=== PATIENT | female | born 1950 | race Caucasian/White ===

== ENCOUNTER → 2017-08-18 | Outpatient (CLI) | payer OTHER ==
--- NOTE | 2017-08-18 09:58 | MG ---
HISTORY: SCREENING Comparison: 03/18/2016 FINDINGS: Bilateral CC and MLO projections of the right and left breast were obtained. Dense fibroglandular ti ssue is seen to be present. No significant architectural distortion, mass or clustered microcalcific ations can be observed to suggest malignancy. No skin thickening or nipple retraction is appreciated . No pathological lymphadenopathy can be identified. Benign-appearing calcifications scattered thro ughout the right and left breasts are observed. IMPRESSION: NO RADIOGRAPHIC EVIDENCE OF MALIGNANCY. ACR CATEGORY: 2 - benign findings. FOLLOW-UP EXAM 1 YEAR. Diagnostic CAD was utilized and reviewed. * 0 (ZERO) - ASSESSMENT INCOMPLETE; ADDITIONAL IMAGING IS NEEDED. * 1/1 (ONE) - NEGATIVE. * 2/II (TWO) - BENIGN FINDINGS. * 3/III (THREE) - PROBABLY BENIGN FINDING; SHORT INTERVAL FOLLOW-UP SUGGESTED. * 4/IV (FOUR) - SUSPICIOUS ABNORMALITY; BIOPSY SHOULD BE CONSIDERED. * 5/V - HIGHLY SUSPICIOUS OF MALIGNANCY; BIOPSY SHOULD BE PERFORMED. A NEGATIVE X-RAY REPORT SHOULD NOT DELAY BIOPSY IF A DOMINANT OR CLINICALLY SUSPICIOUS MASS IS PRESENT; 4 TO 8 PERCENT OF CANCERS ARE NOT IDENTIFIED BY X-RAY. A NEGA TIVE REPORT MAY REINFORCE THE CLINICAL IMPRESSION. ADENOSIS AND DENSE BREASTS MAY OBSCURE AN UNDERLY ING NEOPLASM. Reported By:
== END ==
LOC: RAD 08:26
PROVIDERS: ATTEND Internal Medicine
DX: Z12.31 Encounter for screening mammogram for malignant neoplasm of breast (principal)
CPT/HCPCS: 77067

== ENCOUNTER 2021-05-09 11:46 | Inpatient (IN) ==
[2021-05-09 11:58] VITALS: BMI 20.8
--- NOTE | 2021-05-09 12:16 | DR.CP ---
HPI Time Seen Time Seen by Provider: 05/09/21 12:14 PCP Primary Care Physician: Kervin HPI Comment HPI Comment: 70 y/o with cad s/p stent and no hx afib/flutter with one week of intermittent cp, dizziness and palpitations; worsened this am and she took an extra dose of metoprolol; no cough, fever, chills, n/v/d or synocope; no cigarettes, asthma or copd; she has not been vaccinated against covid and denies exposure. She went to see pcp on Tuesday and was placed on cefdinir and prednisone after bloodwork and cxr done; she's not sure why she's taking them Complaint Chief Complaint:: Pt c/o chest pain and dizziness x 1 week. Self Treatment fo Chief Complaint: Aspirin 81mg COVID-19 Coronavirus risk:travel/contact w/high risk person: No Has patient experienced Coronavirus symptoms: No Source History Provided: Patient Mode of Arrival Mode of Arrival: Ambulatory Timing Onset of Chief Complaint: 05/02/21 Associated Signs and Symptoms Associated Signs and Symptoms: Other PMH PMH Past Medical History: Yes Past Medical History: Coronary Artery Disease and Hypertension Past Surgical History: Yes Surgical History: Hysterectomy Past Surgical History Comment: heart cath with stents Family History History of Family Medical Conditions: Yes Family Medical History: [place] Social History Does patient currently use any type of tobacco product: No Have you used tobacco products in the last 12 months: No Type of Tobacco Use: None Does any household member use tobacco: No Alcohol Use: None Do you use any recreational Drugs:: No Lives With: Family Lives Where: Home Travel Risk Coronavirus risk:travel/contact w/high risk person: No Has patient experienced Coronavirus symptoms: No Infectious screening In the last 2 months have you had wt loss of >10#?: NO Have you had fever, night sweats or hemotysis?: No Have you traveled outside the country in the last 6 months?: No Isolation: Standard ROS Review of Systems Eyes: No Symptoms Reported ENTM: No Symptoms Reported Respiratoy: No Symptoms Reported Gastrointestinal/Abdominal: No Symptoms Reported Genitourinary: No Symptoms Reported Musculoskeletal: No Symptoms Reported Integumentary: No Symptoms Reported Hematologic/Lymphatic: No Symptoms Reported Endocrine: No Symptoms Reported Psychiatric: No Symptoms Reported PE Vitals Vitals: Temperature 98.0 F Pulse Rate 136 Respiratory Rate 20 Blood Pressure 78/45 O2 Sat by Pulse Oximetry 98 General Limitations: No Limitations General Appearance: Other (thin, alert, resting quietly and currently without pain or palpitations) Head Head Exam: Normal Inspection Eyes Eye exam: Normal Appearance ENT ENT Exam: Normal Exam Chest Chest Inspection: Normal Inspection Respiratory Respiratory Exam: Normal Lung Sounds Bilat Respiratory Exam: Bilateral: Clear to Auscultation Cardiovascular Cardiovascular Exam: Tachycardia and Irregular Rhythm Abdominal Exam Abdominal Exam: Normal Inspection, Normal Bowel Sounds and Soft Extremities Extremities Exam: Normal Inspection Back Back Exam: Normal Inspection Neurologic Neurological Exam: Alert and Oriented X3 Psychiatric Psychiatric Exam: Normal Affect and Normal Mood Skin Skin Exam: Warm, Dry, Intact and Normal Color COURSE Consultation Call Returned: 15:11 (Dr Goldman accepts admission) Critical Care Notes Total Time (mins): 30 Critical Diagnosis: aflutter/afib with rvr hypotension hypokalemia covid pneumonia d-dimer + Critical Interventions: heart rate back up with decrease in bp making bb/ccb poor choice for rate control; iv digoxin given with potassium fluids given for bp cta for pos d-dimer, afib/flutter admitted to monitor bp and hr ROR Labs Reviewed Laboratory Results Reviewed?: Yes Result Diagrams: 05/09/21 12:10 05/09/21 12:10 Laboratory: WBC 11.5 X10^3/uL (3.6-10.0) H 05/09/21 12:10 RBC 4.59 X10^6/uL (3.5-5.4) 05/09/21 12:10 Hgb 14.0 g/dL (12.0-16.0) 05/09/21 12:10 Hct 39.8 % (36.0-47.0) 05/09/21 12:10 MCV 86.7 fL (80.0-100.0) 05/09/21 12:10 MCH 30.6 pg (27.0-34.0) 05/09/21 12:10 MCHC 35.3 g/dL (33.0-35.0) H 05/09/21 12:10 RDW 12.9 % (11.6-16.5) 05/09/21 12:10 Plt Count 230 X10^3/uL (150.0-450.0) 05/09/21 12:10 Plt Count Comment Adequate (ADEQUATE) 05/09/21 12:10 MPV 8.1 fL (7.4-11.0) 05/09/21 12:10 Neut % (Auto) 86.3 % (42.0-75.0) H 05/09/21 12:10 Lymph % (Auto) 4.2 % (21.0-51.0) L 05/09/21 12:10 [place] % (Auto) 6.3 % (0.0-13.0) 05/09/21 12:10 Eos % (Auto) 1.2 % (0.9-2.9) 05/09/21 12:10 Baso % (Auto) 2.0 % (0.2-1.0) H 05/09/21 12:10 Neut # (Auto) 10.0 x10^3/uL (2.2-4.8) H 05/09/21 12:10 Lymph # (Auto) 0.5 X10^3/uL (1.3-2.9) L 05/09/21 12:10 [place] # (Auto) 0.7 x10^3/uL (0.3-0.8) 05/09/21 12:10 Eos # (Auto) 0.1 x10^3/uL (0.0-0.2) 05/09/21 12:10 Baso # (Auto) 0.2 X10^3/uL (0.0-0.1) H 05/09/21 12:10 Absolute Nucleated RBC 0.1 /100WBC 05/09/21 12:10 Total Counted 100 05/09/21 12:10 Neutrophils % (Manual) 88 % (39-76) H 05/09/21 12:10 Lymphocytes % (Manual) 8 % (13-43) L 05/09/21 12:10 Monocytes % (Manual) 2 % (4-9) L 05/09/21 12:10 Eosinophils % (Manual) 2 % (0-6) 05/09/21 12:10 Plt Morphology Comment Normal (NORMAL) 05/09/21 12:10 RBC Morphology Normal (NORMAL) 05/09/21 12:10 D-Dimer 0.74 ug/ml (0.0-0.57) H* 05/09/21 12:10 Sodium 142 mmol/L (136-145) 05/09/21 12:10 Corrected Sodium 142 mmol/L (136-145) 05/09/21 12:10 Potassium 3.2 mmol/L (3.5-5.1) L 05/09/21 12:10 Chloride 108 mmol/L (98-107) H 05/09/21 12:10 Carbon Dioxide 25.5 mmol/L (21-32) 05/09/21 12:10 BUN 16 mg/dL (7-18) 05/09/21 12:10 Creatinine 1.10 mg/dL (0.55-1.02) H 05/09/21 12:10 Est GFR (MDRD) Af Amer > 60 (>60) 05/09/21 12:10 Est GFR (MDRD) Non-Af 52 (>60) L 05/09/21 12:10 Glucose 113 mg/dL (65-99) H 05/09/21 12:10 Calcium 8.4 mg/dL (8.5-10.1) L 05/09/21 12:10 Corrected Calcium TNP 05/09/21 12:10 Magnesium 2.2 mg/dL (1.7-2.9) 05/09/21 13:42 Total Bilirubin 0.70 mg/dL (0.2-1.0) 05/09/21 12:10 AST 16 Units/L (15-37) 05/09/21 12:10 ALT 11 Units/L (12-78) L 05/09/21 12:10 Alkaline Phosphatase 72 Units/L (46-116) 05/09/21 12:10 Creatine Kinase 21 Units/L (26-192) L 05/09/21 12:10 CK-MB (CK-2) < 1.0 ng/mL (0-4.0) 05/09/21 12:10 CK/CKMB % Calc 4.8 % (<4) 05/09/21 12:10 Troponin I High Sens 14.2 ng/L (4.0-60.0) 05/09/21 12:10 Total Protein 7.3 g/dL (6.4-8.2) 05/09/21 12:10 Albumin 3.4 g/dL (3.4-5.0) 05/09/21 12:10 Globulin 3.9 g/dL (2.5-4.5) 05/09/21 12:10 Albumin/Globulin Ratio 0.9 Ratio (1.1-2.1) L 05/09/21 12:10 TSH 3rd Generation 1.762 uIU/mL (0.358-3.74) 05/09/21 12:10 SARS CoV-2 RNA Rapid KATIUSKA Positive (NEGATIVE) A 05/09/21 12:30 XRAY XRAY Interpreted by: Radiologist X-ray Results: pcxr: 1.No acute cardiopulmonary abnormality. cta: Patchy subpleural lung infiltrates at the bilateral lung bases suggestive of pneumonia. Atypical etiologies such as COVID-19 can have this appearance. No acute pulmonary embolism. Opioid Opioid Risk Tool Age (Micha box if 16-45): No History of Preadolescent Sexual Abuse: No Total: 0 Total Score Risk Category: Low Risk Copyright: Yadav predicting aberrant behaviors Diagnosis Discharge Problem: Pneumonia due to COVID-19 virus, Atrial fibrillation/flutter, Hypokalemia, CAD in [place] artery, Hx of heart artery stent, Essential hypertension, Hyperlipidemia, mixed Instructions Forms: [facility] Patient Portal Social Distancing
[2021-05-09 12:19] LABS: BASOPHILS # (AUTO) 0.2 X10^3/uL (0.0-0.1); EOSINOPHILS # (AUTO) 0.1 x10^3/uL (0.0-0.2); EOSINOPHILS % (AUTO) 1.2 % (0.9-2.9); HEMATOCRIT 39.8 % (36.0-47.0); LYMPHOCYTES # (AUTO) 0.5 X10^3/uL (1.3-2.9); LYMPHOCYTES % (AUTO) 4.2 % (21.0-51.0); MEAN CORPUSCULAR HEMOGLOBIN 30.6 pg (27.0-34.0); MEAN CORPUSCULAR HGB CONC 35.3 g/dL (33.0-35.0); MEAN CORPUSCULAR VOLUME 86.7 fL (80.0-100.0); MEAN PLATELET VOLUME 8.1 fL (7.4-11.0); MONOCYTES # (AUTO) 0.7 x10^3/uL (0.3-0.8); MONOCYTES % (AUTO) 6.3 % (0.0-13.0); NEUTROPHILS % (AUTO) 86.3 % (42.0-75.0); RED BLOOD COUNT 4.59 X10^6/uL (3.5-5.4); RED CELL DISTRIBUTION WIDTH 12.9 % (11.6-16.5); WHITE BLOOD COUNT 11.5 X10^3/uL (3.6-10.0)
[2021-05-09] MEDS ORDERED: NS 1,000 ML IV 1,000 ML IV ONE (12:32)
[2021-05-09] MEDS ORDERED: NS 1,000 ML IV 1,000 ML ONE (12:40)
[2021-05-09 12:47] LABS: ALANINE AMINOTRANSFERASE 11 Units/L (12-78); ALBUMIN 3.4 g/dL (3.4-5.0); ALKALINE PHOSPHATASE 72 Units/L (46-116); ASPARTATE AMINO TRANSFERASE 16 Units/L (15-37); BLOOD UREA NITROGEN 16 mg/dL (7-18); CALCIUM 8.4 mg/dL (8.5-10.1); CARBON DIOXIDE 25.5 mmol/L (21-32); CHLORIDE 108 mmol/L (98-107); CKMB % 4.8 % (<4); COR NA(FOR HYPERGLY) 142 mmol/L (136-145); CREATINE KINASE 21 Units/L (26-192); CREATINE KINASE MB < 1.0 ng/mL (0-4.0); SODIUM 142 mmol/L (136-145); TOTAL PROTEIN 7.3 g/dL (6.4-8.2); eGFR NON BLACK RACES 52 (>60)
[2021-05-09] MEDS ORDERED: K-DUR TAB 20 MEQ PO STA (13:02)
[2021-05-09] MEDS ORDERED: LANOXIN INJ IVP STA (13:02)
[2021-05-09 13:03] LABS: PLATELET MORPHOLOGY COMMENT NORMAL (NORMAL)
--- NOTE | 2021-05-09 13:14 | RAD ---
HISTORY:Chest painStudy: Single view chestComparison:NoneFindings:Multiple wires overlie the chest. Lungs are mildly hyperinflated. No infiltrate, effusion, or pneumothorax identified .Cardiac and mediastinal contours are within normal limits .The soft tissues are intact .IMPRESSION:1.No acute cardiopulmonary abnormality.Electronically signed by: OTTO ERNST (May 09, 2021 13:13:25)
[2021-05-09] MEDS ORDERED: K-DUR TAB 20 MEQ PO ONE (13:41)
[2021-05-09] MEDS ORDERED: LANOXIN INJ ONE (13:41)
--- NOTE | 2021-05-09 14:26 | CT ---
HISTORY:Elevated D-dimer, AFib with RVRStudy: CTA chestComparison:NoneTechnique: Multiple axial images of the chest were obtained after the administration of IV contrast. 3D reconstructions were performed utilizing radial maximum intensity projection imaging. Dose reduction techniques including Automated Exposure Control (AEC) and adjustment of mA and kV were utilized.Findings:Contrast opacification of the pulmonary arteries is adequate to the level of the segmental branches. No evidence of acute pulmonary emboli . Normal appearance of the heart and pericardium . The aorta appears normal in course and caliber. There are patchy subpleural ground-glass infiltrates at the lung bases suggestive of pneumonia. Atypical etiologies such as COVID-19 can have this appearance. No effusion or pneumothorax. Airways are patient. No mass or lymphadenopathy identified.The soft tissues and osseous structures appear intact . The visualized portions of the upper abdomen are grossly unremarkable.IMPRESSION:Patchy subpleural lung infiltrates at the bilateral lung bases suggestive of pneumonia. Atypical etiologies such as COVID-19 can have this appearance.No acute pulmonary embolism.Electronically signed by: OTTO ERNST (May 09, 2021 14:25:37)
[2021-05-09] MEDS ORDERED: NS 50 ML IV + SPIKE MINIBAG* 50 ML IV ONE (15:25)
[2021-05-09] MEDS ORDERED: ZOSYN VIAL 3.375 GRAMS IV ONE (15:25)
[2021-05-09] MEDS: ZOSYN VIAL 3.375 GRAMS 3.375 G in NS 100 ML IV + SPIKE MINIBAG* 100 ML IV SCH ×2 (15:27→21:08)
[2021-05-09 18:45] LABS: CKMB % 5.2 % (<4); CREATINE KINASE MB 1.5 ng/mL (0-4.0)
[2021-05-09] MEDS: PULMICORT NEB TX 0.5 MG NEB SCH (20:58)
[2021-05-09] MEDS: BROVANA IN SCH (20:58)
[2021-05-09] MEDS: LOPRESSOR TAB 25 MG PO SCH (21:08)
[2021-05-10 00:58] LABS: CREATINE KINASE MB 1.9 ng/mL (0-4.0)
[2021-05-10] MEDS ORDERED: ZOSYN VIAL 3.375 GRAMS IV ONE (05:34)
[2021-05-10] MEDS ORDERED: NS 100 ML IV 100 ML ONE (05:34)
[2021-05-10] MEDS: ZOSYN VIAL 3.375 GRAMS 3.375 G in NS 100 ML IV + SPIKE MINIBAG* 100 ML IV SCH (06:00)
[2021-05-10 06:25] LABS: BASOPHILS % (AUTO) 0.3 % (0.2-1.0); EOSINOPHILS # (AUTO) 0.1 x10^3/uL (0.0-0.2); EOSINOPHILS % (AUTO) 0.7 % (0.9-2.9); HEMATOCRIT 36.4 % (36.0-47.0); HEMOGLOBIN 12.9 g/dL (12.0-16.0); LYMPHOCYTES # (AUTO) 1.2 X10^3/uL (1.3-2.9); LYMPHOCYTES % (AUTO) 14.2 % (21.0-51.0); MEAN CORPUSCULAR HEMOGLOBIN 30.8 pg (27.0-34.0); MEAN CORPUSCULAR HGB CONC 35.4 g/dL (33.0-35.0); MEAN CORPUSCULAR VOLUME 86.8 fL (80.0-100.0); MEAN PLATELET VOLUME 7.7 fL (7.4-11.0); MONOCYTES # (AUTO) 0.7 x10^3/uL (0.3-0.8); MONOCYTES % (AUTO) 8.2 % (0.0-13.0); NEUTROPHILS # (AUTO) 6.4 x10^3/uL (2.2-4.8); NEUTROPHILS % (AUTO) 76.6 % (42.0-75.0); RED BLOOD COUNT 4.19 X10^6/uL (3.5-5.4); RED CELL DISTRIBUTION WIDTH 12.8 % (11.6-16.5); WHITE BLOOD COUNT 8.3 X10^3/uL (3.6-10.0)
[2021-05-10 06:50] LABS: ALANINE AMINOTRANSFERASE 11 Units/L (12-78); ALBUMIN 2.9 g/dL (3.4-5.0); ALKALINE PHOSPHATASE 68 Units/L (46-116); ASPARTATE AMINO TRANSFERASE 14 Units/L (15-37); BLOOD UREA NITROGEN 12 mg/dL (7-18); CALCIUM 7.9 mg/dL (8.5-10.1); CHLORIDE 111 mmol/L (98-107); CKMB % 6.8 % (<4); COR CA(FOR HYPOALB) 8.8 mg/dL (8.5-10.1); CREATINE KINASE 22 Units/L (26-192); CREATINE KINASE MB 1.5 ng/mL (0-4.0); CREATININE 0.94 mg/dL (0.55-1.02); SODIUM 143 mmol/L (136-145); TOTAL PROTEIN 6.4 g/dL (6.4-8.2); eGFR NON BLACK RACES > 60 (>60)
[2021-05-10] MEDS: LOPRESSOR TAB 25 MG PO SCH ×2 (08:11→20:05)
[2021-05-10] MEDS: BROVANA IN SCH ×2 (08:58→21:12)
[2021-05-10] MEDS: PULMICORT NEB TX 0.5 MG NEB SCH ×2 (08:59→21:12)
[2021-05-10] MEDS: ELIQUIS PO SCH ×2 (11:45→20:05)
[2021-05-10 12:20] LABS: CKMB % 4.6 % (<4); CREATINE KINASE MB 1.3 ng/mL (0-4.0)
[2021-05-11 05:23] LABS: BASOPHILS % (AUTO) 0.6 % (0.2-1.0); EOSINOPHILS # (AUTO) 0.1 x10^3/uL (0.0-0.2); EOSINOPHILS % (AUTO) 1.5 % (0.9-2.9); HEMATOCRIT 35.5 % (36.0-47.0); HEMOGLOBIN 12.6 g/dL (12.0-16.0); LYMPHOCYTES # (AUTO) 1.2 X10^3/uL (1.3-2.9); LYMPHOCYTES % (AUTO) 22.1 % (21.0-51.0); MEAN CORPUSCULAR HEMOGLOBIN 30.7 pg (27.0-34.0); MEAN CORPUSCULAR HGB CONC 35.6 g/dL (33.0-35.0); MEAN CORPUSCULAR VOLUME 86.1 fL (80.0-100.0); MEAN PLATELET VOLUME 8.2 fL (7.4-11.0); MONOCYTES # (AUTO) 0.6 x10^3/uL (0.3-0.8); MONOCYTES % (AUTO) 10.5 % (0.0-13.0); NEUTROPHILS # (AUTO) 3.5 x10^3/uL (2.2-4.8); NEUTROPHILS % (AUTO) 65.3 % (42.0-75.0); RED BLOOD COUNT 4.12 X10^6/uL (3.5-5.4); RED CELL DISTRIBUTION WIDTH 12.9 % (11.6-16.5); WHITE BLOOD COUNT 5.4 X10^3/uL (3.6-10.0)
--- NOTE | 2021-05-11 05:36 | RAD ---
PROCEDURE: Chest X-ray 1 View .HISTORY: Dyspnea and COVID-19.TECHNIQUE: AP view .COMPARISON: 05/09/2021.TECHNICAL QUALITY: Satisfactory .FINDINGS:Normal size heart .Mediastinum and hilar regions show no masses or lymphadenopathy .Normal central vascularity .No pulmonary consolidation, masses, pleural fluid, or pneumothorax. Emphysematous changes both lung lamar with hyperlucency and hyper expansion.No acute bony abnormality .IMPRESSION:1. COPD.2. No other evidence of active disease.Electronically signed by: Grzegorz Mclain (May 11, 2021 05:36:08)
[2021-05-11 05:41] LABS: ALANINE AMINOTRANSFERASE 11 Units/L (12-78); ALBUMIN 2.8 g/dL (3.4-5.0); ALKALINE PHOSPHATASE 65 Units/L (46-116); ASPARTATE AMINO TRANSFERASE 13 Units/L (15-37); BLOOD UREA NITROGEN 8 mg/dL (7-18); CHLORIDE 107 mmol/L (98-107); CREATININE 0.86 mg/dL (0.55-1.02); SODIUM 144 mmol/L (136-145); TOTAL PROTEIN 6.3 g/dL (6.4-8.2); eGFR NON BLACK RACES > 60 (>60)
[2021-05-11] MEDS ORDERED: K-RIDER 10 MEQ/NS 100 ML 10 MEQ/100 ML BAG IV PRN (06:22)
[2021-05-11] MEDS ORDERED: MAGNESIUM SULFATE 1 GRAM/100 mL PREMIX 1 G/100 ML BAG IV PRN (06:22)
[2021-05-11] MEDS ORDERED: POTASSIUM CHLORIDE LIQ 20 MEQ UDC PO PRN (06:22)
[2021-05-11] MEDS ORDERED: POTASSIUM CHL 40 MEQ/NS 0.45% 500 ML IV PRN (06:22)
[2021-05-11] MEDS ORDERED: POTASSIUM CHL 60 MEQ/NS 0.45% 500 ML IV PRN (06:22)
[2021-05-11] MEDS ORDERED: MICRO K EXTEN CAP 10 MEQ PO PRN (06:22)
[2021-05-11] MEDS ORDERED: KLOR-CON PO PRN (06:22)
[2021-05-11] MEDS ORDERED: K-DUR TAB 20 MEQ PO PRN (06:22)
[2021-05-11] MEDS: PULMICORT NEB TX 0.5 MG NEB SCH (08:09)
[2021-05-11] MEDS: BROVANA IN SCH (08:09)
[2021-05-11] MEDS ORDERED: TOPROL XL PO ONE (08:12)
[2021-05-11] MEDS: ELIQUIS PO SCH (08:33)
[2021-05-11] MEDS ORDERED: TOPROL XL PO SCH (09:00)
[2021-05-11 10:54] VITALS: BP 159/72
== END 2021-05-11 11:10 | disposition home or self-care (01) | DRG 177 ==
LOC: ER 11:52 → ICU 15:11
PROVIDERS: ADMIT Obstetrics & Gynecology Obstetrics; ATTEND Internal Medicine